=== PATIENT | male | born 1985 | race Caucasian/White ===

== ENCOUNTER 2020-06-19 10:21 | Outpatient (REF) | payer OTHER, SELFPAY | END 2020-06-19 10:22 | disposition home or self-care (01) | LOC: HO.LAB 10:21 | PROVIDERS: Visit Provider Internal Medicine | DX: Z20.822 Contact with and (suspected) exposure to COVID-19 (principal) | CPT/HCPCS: 36415; C9803; U0003 ==

== ENCOUNTER 2020-06-30 10:15 | Outpatient (REF) | payer OTHER, SELFPAY | END 2020-06-30 10:16 | disposition home or self-care (01) | LOC: HO.LAB 10:15 | PROVIDERS: Visit Provider Internal Medicine | DX: Z20.822 Contact with and (suspected) exposure to COVID-19 (principal) | CPT/HCPCS: 36415; C9803; U0003; U0005 ==

== ENCOUNTER → 2021-07-18 10:15 | Outpatient (REF) | payer OTHER, SELFPAY ==
--- NOTE | 2021-07-18 10:19 | CA_ITS ---
Transthoracic Echocardiogram Patient (Last, First, Middle): Levon Chavez, Gender: Male Date of : 1985 Age: 35 Procedure Date: 07/18/2021 Procedure Type: Transthoracic Echocardiogram Location: OP Height: 170.18 cm Weight: 72.58 kg BSA: 1.84 m2 Heart Rate: bpm BP: 110 / 70 mmHg Fuel Technician: YR/TO Referring MD: Aby Avitia Symptoms: ABNORMAL EKG R94.31 Study Quality: Good ECG Rhythm: Sinus Conclusions: - The left ventricular systolic function is normal. The calculated ejection fraction is 63% by biplane method. - No obvious valvular pathology seen on this study. Findings Left Ventricle Normal left ventricular cavity size. There is normal left ventricular wall thickness. The left ventricular systolic function is normal. The calculated ejection fraction is 63% by biplane method. There is no evidence of regional wall motion abnormalities. Diastolic function is normal for age. Right Ventricle Normal right ventricular cavity size and systolic function. Atria Both atria are normal in size. Aortic Valve There is a normal trileaflet aortic valve. There is no aortic valve stenosis. There is no aortic valve regurgitation. Mitral Valve The mitral valve appears normal. There is trace mitral valve regurgitation. There is no mitral valve stenosis. Pulmonic Valve The pulmonic valve was not well visualized. Tricuspid Valve Normal tricuspid valve structure. There is no tricuspid valve regurgitation. Tricuspid regurgitation envelope is inadequate for calculation of right ventricular systolic pressure. Great Vessels The aortic annulus, sinuses of valsalva, and asc aorta are normal in size. Venous The inferior vena cava is normal in size and collapses greater than 50% with inspiration. Pericardium/Pleural There is no evidence of pericardial effusion. Prior Study Comparison No prior study available for comparison. Recommendations, Care & Conclusions No obvious valvular pathology seen on this study. Measurements 2D Linear Measurements IVSd: 0.79 0.6-0.9/0.6-1.0 cm LVIDd: 4.76 3.9-5.3/4.2-5.9 cm LVIDd Index: 2.59 2.4-3.2/2.2-3.1 cm/m2 LVIDs: 2.68 2.0-3.6 cm LVPWd: 0.90 0.7-1.1 cm Ao Root: 3.20 2.1-3.5 cm LA Diam: 3.60 2.7-3.8/3.0-4.0 cm LAIDs Index: 1.96 1.5-2.3 cm/m2 LV Mass: 166.00 67-162/88-224 g LV Mass Index: 90.22 43-95/49-115 g/m2 LVOT Diam: 2.00 3.0+(-)1.3 cm 2D Systolic Function EF 4C: 65.30 >55% EF 2C: 64.00 >55% EF BiP: 63.10 >55% Mitral Valve MV Pk E: 0.75 MV PK A: 0.51 MV Decel Time: 158.00 E/A: 1.50 E'Lateral: 12.40 E'Medial: 10.00 E/E' Med: 7.50 E/E' Lat: 6.10 PHT: 46.00 MVA PHT: 4.78 Decel Cole: 4.79 Aortic Valve AoV Pk [place]yon: 1.25 AoV Mn [place]: 0.74 AoV VTI: 0.22 AoV Pk Grad: 6.00 Aov Mn Grad: 3.00 JIGAR Cont.VTI: 3.15 LVOT LVOT Pk [place]: 1.19 LVOT Mn [place]: 0.73 LVOT VTI: 0.22 LVOT Pk Grad: 6.00 LVOT Mn Grad: 3.00 LVOT Diam: 2.00 LVOT Area: 3.14 Diastolic Function MV Pk E: 0.75 MV Pk A: 0.51 E/A: 1.50 E'Medial: 10.00 E/E' Med: 7.50 E' Laterial: 12.40 E/E' Lat: 6.10 Right Ventricle TAPSE (mm): 23.00 TVS' [place]: 11.50 Tricuspid Valve RA Press: 3.00 Great Vessels Aorta Ao Root-2D: 3.20 2.0-3.7 cm Ao Asc: 2.70 2.1-3.4 cm Pulmonary Valve PV Pk [place]: 1.03 Peak PV Grad: 4.00 Updated in Other Vendor System with Status of Final Zac Forman MD electronically signed on 07/20/2021 3:18:01 PM with status of Final
== END ==
LOC: HO.CARD 10:15
PROVIDERS: PCP Nurse Practitioner Family; Visit Provider Nurse Practitioner Family
DX: R94.31 Abnormal electrocardiogram [ECG] [EKG] (principal)
CPT/HCPCS: 93306